=== PATIENT | female | born 1985 | race African-American/Black ===

== ENCOUNTER 2023-08-29 08:14 | Emergency (ER) | payer MEDICAID, OTHER ==
[~2023-08-29] VITALS: Ht 167.6 cm; Wt 114.0 kg
[2023-08-29 08:16] VITALS: O2SAT 99
[2023-08-29] MEDS ORDERED: ACETAMINOPHEN 325MG TABLET PO STA (08:35)
[2023-08-29] MEDS ORDERED: MAGNESIUM/ALUMINUM HYDROXIDE/SIMETHICONE 30ML UDC PO STA (08:35)
[2023-08-29] MEDS ORDERED: FAMOTIDINE 20MG/2ML VIAL IV STA (08:35)
[2023-08-29] MEDS ORDERED: METOCLOPRAMIDE HCL 10MG/2ML VIAL IV STA (08:35)
[2023-08-29 09:14] LABS: BASOPHILS % 0.5 % (0.0-2.0); DIFFERENTIAL COMMENT 0; EOSINOPHILS % 0.2 % (0.0-5.0); HEMATOCRIT. 33.5 % (36.0-48.0); HEMOGLOBIN. 10.9 g/dL (12.0-16.0); LYMPHOCYTES % 9.3 % (20.0-50.0); MEAN CORPUSCULAR HEMOGLOBIN 24.9 pg (28.0-32.0); MEAN CORPUSCULAR HGB CONC 32.5 g/dL (31.0-37.0); MEAN CORPUSCULAR VOLUME 76.6 fL (81.0-99.0); MEAN PLATELET VOLUME 9.8 fl (7.4-10.4); MONOCYTES % 2.3 % (2.0-8.0); NEUTROPHILS % 87.7 % (40.0-76.0); PLATELET 297 x1000/uL (130-400); RED BLOOD CELL COUNT 4.37 mill/uL (4.2-5.4); RED CELL DISTRIBUTION WIDTH 18.9 % (11.6-14.6); WHITE BLOOD COUNT 8.4 x1000/uL (4.5-11.0)
[2023-08-29 09:22] LABS: CHLORIDE 108 mEq/L (98-107); POTASSIUM 3.4 mEq/L (3.5-5.1); SODIUM 139 mEq/L (136-145)
[2023-08-29 09:23] LABS: CALCIUM 9.8 mg/dL (8.7-10.4); CARBON DIOXIDE 22 mEq/L (21-32); HCG SCREEN NEGATIVE; INR 0.9; PROTHROMBIN TIME 10.3 sec (9.6-11.0)
[2023-08-29 09:28] LABS: CREATININE 0.7 mg/dL (0.6-1.0); GLUCOSE 143 mg/dL (70-105); UREA NITROGEN BLOOD 11 mg/dL (9-23)
[2023-08-29 09:29] LABS: TROPONIN I HIGH SENSITIVITY < 4 ng/L (3.0-34)
[2023-08-29] MEDS ORDERED: FAMO-135 MT (09:37)
[2023-08-29] MEDS: FAMOTIDINE 20MG/2ML VIAL IV NR (10:46)
[2023-08-29] MEDS: SODIUM CHLORIDE 0.9% 1,000 ML IV ONE (10:46)
[2023-08-29] MEDS: ACETAMINOPHEN 325MG TABLET PO NR (10:47)
[2023-08-29] MEDS: METOCLOPRAMIDE HCL 10MG/2ML VIAL IV NR (10:47)
[2023-08-29] MEDS: MAGNESIUM/ALUMINUM HYDROXIDE/SIMETHICONE 30ML UDC PO NR (10:47)
[2023-08-29 12:05] VITALS: BP 148/82; PULSE 72; RESP 18; TEMP 98.8
== END 2023-08-29 12:35 | disposition home or self-care (01) ==
LOC: ER 08:39
DX: K29.70 Gastritis, unspecified, without bleeding (principal)
CPT/HCPCS: 80048; 84703; 83690; 85025; 85610; 84484; 36415; 71045; 93005; 96361; 96374; 96375; 99285; J3490; J2765; J7030; Z7610